=== PATIENT | female | born 1990 | race Caucasian/White ===

== ENCOUNTER → 2016-04-12 | Outpatient (CLI) | payer BC | LOC: LAB.O 16:24 | PROVIDERS: ATTEND Nurse Practitioner Family | DX: R10.13 Epigastric pain (principal); R13.10 Dysphagia, unspecified ==

== ENCOUNTER 2016-07-25 02:49 | Emergency (ER) | payer BC ==
[2016-07-25 03:08] VITALS: TEMP 97.4; O2SAT 98
--- NOTE | 2016-07-25 03:12 | ED.PDOC ---
History of Present Illness - General Chief Complaint: General Stated Complaint: lower right chest and back pain Time Seen by Provider: 07/25/16 03:09 Source: patient, RN notes reviewed, Vital Signs reviewed Exam Limitations: no limitations - History of Present Illness Initial Comments: Patient is a 26 y/o female who has had right chest/back pain since 2300 tonight. It keeps waking her up. She can't describe the pain. It is about a 7 /10 when it hurts around to the back, but is a 4/10 right now. She denies any nausea/vomiting/diarrhea. She believes she has a UTI because she has some mild dysuria. It also feels like her kidneys hurt. Timing/Duration: 4-6 hours Severity: mild, moderate Improving Factors: nothing Worsening Factors: nothing Associated Symptoms: chest pain Allergies/Adverse Reactions: Allergies NO KNOWN ALLERGY Allergy (Verified 07/25/16 03:01) Home Medications: Ambulatory Orders Pantoprazole Sodium [Protonix] 20 mg PO DAILY 07/25/16 Sulfa/Trimeth 800/160 (Ds) Tab [Bactrim DS Tab] 1 ea PO BID #10 tab 07/25/16 Review of Systems - Review of Systems Constitutional: States: no symptoms reported EENTM: States: no symptoms reported Respiratory: States: no symptoms reported Cardiology: States: chest pain Gastrointestinal/Abdominal: States: abdominal pain Genitourinary: States: dysuria, pain Musculoskeletal: States: no symptoms reported Skin: States: no symptoms reported Neurological: States: no symptoms reported Endocrine: States: no symptoms reported Hematologic/Lymphatic: States: no symptoms reported All other Systems: Reviewed and Negative Past Medical History (General) - Patient Medical History Hx Seizures: No Hx Stroke: No Hx Asthma: No Hx of COPD: No Hx Cardiac Disorders: No Hx Congestive Heart Failure: No Hx Pacemaker: No Hx Hypertension: No Hx Diabetes: No Hx Gastroesophageal Reflux: Yes Hx Cancer: No Hx Hepatitis C: No - Vaccination History Hx Tetanus, Diphtheria Vaccination: Yes Hx Influenza Vaccination: No Hx Pneumococcal Vaccination: No Immunizations Up to Date: No - Social History Hx Tobacco Use: No Hx Chewing Tobacco Use: No Hx Alcohol Use: Yes Hx Substance Use: No Hx Substance Use Treatment: No Hx Depression: No Hx Physical Abuse: No Hx Emotional Abuse: No Hx Suspected Abuse: No - Female History Patient is a Female of Child Bearing Age (10 -59 yrs old): Yes Hx Last Menstrual Period: 01/09/16 Patient : - unknown Family Medical History - Family History Mother Family History: No Known Living Status: Still Living Hx Family Asthma: No Hx Family Congestive Heart Failure: No Hx Family Hypertension: No Physical Exam - Physical Exam General Appearance: Alert, Comfortable, No apparent distress Eye Exam: bilateral normal Ears, Nose, Throat: hearing grossly normal, normal ENT inspection Neck: non-tender, supple Respiratory: lungs clear, normal breath sounds, no respiratory distress Cardiovascular/Chest: regular rate, rhythm, no edema, no gallop, no murmur Gastrointestinal/Abdominal: normal bowel sounds, non tender, soft, no organomegaly, no pulsatile mass Back Exam: CVA tenderness (L) Extremity: normal range of motion, non-tender, normal inspection, no pedal edema , no calf tenderness Neurologic: alert, normal mood/affect, oriented x 3 Skin Exam: normal color, warm/dry Progress - Results/Orders Results/Orders: 07/25/16 07/25/16 03:04 04:33 Temperature 97.4 F L Pulse Rate [ 76 68 monitor] Respiratory 20 20 Rate Blood Pressure 134/79 132/69 [Left Arm] O2 Sat by Pulse 98 98 Oximetry 07/25/16 03:00 URINE CULTURE W/COLONY COUNT Stat 07/25/16 03:15 EKG STAT Laboratory Results WBC 7.9 K/mm3 (4.8-10.8) 07/25/16 03:20 RBC 4.85 M/mm3 (4.20-5.40) 07/25/16 03:20 Hgb 13.9 gm/dL (12.0-16.0) 07/25/16 03:20 Hct 42.4 % (36.0-47.0) 07/25/16 03:20 MCV 87.3 fl (81.0-99.0) 07/25/16 03:20 MCH 28.7 pg (27.0-31.0) 07/25/16 03:20 MCHC 32.9 g/dL (33.0-37.0) L 07/25/16 03:20 RDW 14.4 % (11.5-14.5) 07/25/16 03:20 Plt Count 244 K/mm3 (130-400) 07/25/16 03:20 MPV 8.1 fl (7.40-10.4) 07/25/16 03:20 Absolute Neuts (auto) 3.80 K/uL (1.8-6.8) 07/25/16 03:20 Absolute Lymphs (auto) 3.10 K/uL (1.0-3.4) 07/25/16 03:20 Absolute Monos (auto) 0.80 K/uL (0.2-0.8) 07/25/16 03:20 Absolute Eos (auto) 0.00 K/uL (0.0-0.4) 07/25/16 03:20 Absolute Basos (auto) 0.00 K/uL (0.0-0.1) 07/25/16 03:20 Neutrophils % 48.5 % (42.0-78.0) 07/25/16 03:20 Lymphocytes % 39.9 % (20.0-50.0) 07/25/16 03:20 Monocytes % 10.8 % (2.0-9.0) H 07/25/16 03:20 Eosinophils % 0.4 % (1.0-5.0) L 07/25/16 03:20 Basophils % 0.4 % (0.0-2.0) 07/25/16 03:20 D-Dimer, Quantitative 574 ng/mL (0-230) H* 07/25/16 03:20 Sodium 137 mmol/L (135-145) 07/25/16 03:20 Potassium 3.5 mmol/L (3.6-5.0) L 07/25/16 03:20 Chloride 106 mmol/L (101-111) 07/25/16 03:20 Carbon Dioxide 27 mmol/L (21-31) 07/25/16 03:20 Anion Gap 7.5 (12-18) L 07/25/16 03:20 BUN 14 mg/dL (7-18) 07/25/16 03:20 Creatinine 0.66 mg/dL (0.6-1.3) 07/25/16 03:20 BUN/Creatinine Ratio 21.2 (10-20) H 07/25/16 03:20 Random Glucose 91 mg/dL (70-105) 07/25/16 03:20 Serum Osmolality 273.9 mOsm/L (275-295) L 07/25/16 03:20 Calcium 8.5 mg/dL (8.4-10.2) 07/25/16 03:20 Total Bilirubin 0.4 mg/dL (0.2-1.0) 07/25/16 03:20 AST 16 IU/L (10-42) 07/25/16 03:20 ALT 14 IU/L (10-60) 07/25/16 03:20 Alkaline Phosphatase 44 IU/L (42-121) 07/25/16 03:20 Serum Total Protein 7.1 gm/dL (6.4-8.2) 07/25/16 03:20 Albumin 3.9 g/dl (3.2-5.5) 07/25/16 03:20 Globulin 3.2 gm/dL (2.3-3.5) 07/25/16 03:20 Albumin/Globulin Ratio 1.2 (1.1-1.9) 07/25/16 03:20 Serum HCG, Qual Negative 07/25/16 03:20 Urine Color Yellow (Yellow) 07/25/16 03:00 Urine Appearance Cloudy (Clear) 07/25/16 03:00 Urine pH 7.0 (4.5-7.8) 07/25/16 03:00 Ur Specific [place] 1.025 (1.005-1.030) 07/25/16 03:00 Urine Protein >=300 mg/dL H 07/25/16 03:00 Urine Glucose (UA) Negative mg/dL (Negative) 07/25/16 03:00 Urine Ketones Negative mg/dL (NEGATIVE) 07/25/16 03:00 Urine Blood Large (Negative) H 07/25/16 03:00 Urine Nitrite Negative 07/25/16 03:00 Urine Bilirubin Negative (NEGATIVE) 07/25/16 03:00 Urine Urobilinogen 0.2 mg/dL (0.2-1.0) 07/25/16 03:00 Ur Leukocyte Esterase Small (Negative) H 07/25/16 03:00 Urine RBC 10-20 /hpf H 07/25/16 03:00 Urine WBC >100 /hpf H 07/25/16 03:00 Ur Epithelial Cells 3-5 /hpf 07/25/16 03:00 Urine Bacteria 2+ H 07/25/16 03:00 Urine Mucus Small 07/25/16 03:00 - EKG/XRAY/CT EKG: Sinus - 74 bpm, no ST T wave changes Comments: NML axis, NML intervals, No comparison: NML EKG CT: CTA chest: No evidence of PE CT Ordered: Yes Departure - Departure Clinical Impression: Reflux gastritis Urinary tract infection Qualifiers: Urinary tract infection type: site unspecified Hematuria presence: with hematuria Qualified Code(s): N39.0 - Urinary tract infection, site not specified Time of Disposition: 05:49 Disposition: Discharge to Home or Self Care Condition: Fair Departure Forms: ED Discharge - Pt. Copy, Patient Portal Self Enrollment Instructions: Urinary Tract Infection, DI for Urinary Tract Infection (UTI), DI for Gastroesophageal Reflux Disease (GERD), GERD Diet Diet: bland diet Referrals: JONAS ARANDA [Primary Care Provider] - 1-2 Weeks Prescriptions: Sulfa/Trimeth 800/160 (Ds) Tab [Bactrim DS Tab] 1 ea PO BID #10 tab Home Medications: Ambulatory Orders Pantoprazole Sodium [Protonix] 20 mg PO DAILY 07/25/16 Sulfa/Trimeth 800/160 (Ds) Tab [Bactrim DS Tab] 1 ea PO BID #10 tab 07/25/16 Additional Instructions: Increase pantoprazole to twice daily for two days. Follow up with PCP to repeat urinalysis after antibiotics are finished to assure resolution. Follow up in ED if symptoms worsen.
--- NOTE | 2016-07-25 05:24 | CT ---
EXAM DESCRIPTION: CTA Chest 07/25/2016 5:22 AM CDT CLINICAL HISTORY: 26 years, Female, right chest pain/elevated d-dimer COMPARISON: None. TECHNIQUE: Following the timed administration of intravenous contrast, volumetric CT acquisition was performed through the chest. Images in the axial, coronal, and sagittal plane were presented for interpretation. Maximum intensity projections were also presented for interpretation. This exam was performed according to our departmental dose-optimization program, which includes automated exposure control, adjustment of the mA and/or kV according to patient size and/or use of iterative reconstruction technique. FINDINGS: There is no evidence of pulmonary embolism on this diagnostic quality study. The lungs are clear without focal consolidation or pleural effusion. The heart is normal in size and morphology. The thoracic aorta and its primary branches are normal in course and caliber. The main pulmonary artery is normal in size. The visualized proximal tracheobronchial tree is within normal limits. There are no pathologically enlarged mediastinal, hilar, or supraclavicular lymph nodes. The soft tissue structures of the chest wall are normal. The visualized osseous structures are age appropriate. Limited evaluation of the upper abdomen demonstrates no gross abnormalities. The visualized portions of the liver, pancreas, and stomach are normal. The spleen is mildly enlarged measuring 14 cm in greatest transverse dimension. IMPRESSION: 1. No evidence of pulmonary embolism. 2. No acute intrathoracic process. 3. Borderline splenomegaly. Electronically signed by: Chandu Ivy MD 07/25/2016 5:24 AM CDT
[2016-07-25] MEDS ORDERED: SULFA/TRIMETH 800/160 (DS) TAB 1 EA TAB PO ONE (05:46)
[2016-07-25 06:01] VITALS: BP 134/88
== END 2016-07-25 06:02 | disposition home or self-care (01) ==
LOC: ER 02:49
DX: K29.60 Other gastritis without bleeding (principal); N39.0 Urinary tract infection, site not specified; K21.9 Gastro-esophageal reflux disease without esophagitis

== ENCOUNTER 2016-07-25 09:53 | Emergency (ER) | payer BC ==
[2016-07-25 10:18] VITALS: TEMP 98.1
[2016-07-25] MEDS ORDERED: predniSONE 20 MG TAB PO ONE (10:22)
[2016-07-25] MEDS ORDERED: MONTELUKAST SODIUM 10 MG TAB PO ONE (10:23)
--- NOTE | 2016-07-25 11:57 | ED.PDOC ---
History of Present Illness - General Chief Complaint: General Stated Complaint: swelling of hands and feet Time Seen by Provider: 07/25/16 10:13 Source: patient Exam Limitations: no limitations - History of Present Illness Initial Comments: the patient is a 26-year-old female presenting to the emergency room secondary to very mild swelling of all 4 extremities. The patient was here in the emergency room last night for some lower abdominal cramping and some mild back discomfort primarily on the right side. The patient did have an elevated d -dimer and did receive a CT angiogram of the chest which was negative. The swelling started last night before she received any IV contrast or any medications at all. She started with some very mild swelling to the left hand. She has since had some swelling to all 4 extremities. She reports that she has had a couple of hives breakout. They are itchy. She has had some erythema. No shortness of breath. No cough. No syncope or near syncope. No palpitations. She is quite certain that this did start before she received the contrast or antibiotic last night. She was found to have a significant urinary tract infection and was started on Bactrim. Timing/Duration: unsure Severity: mild Improving Factors: nothing Worsening Factors: nothing Associated Symptoms: malaise Allergies/Adverse Reactions: Allergies NO KNOWN ALLERGY Allergy (Verified 07/25/16 03:01) Home Medications: Ambulatory Orders Pantoprazole Sodium [Protonix] 20 mg PO DAILY 07/25/16 Sulfa/Trimeth 800/160 (Ds) Tab [Bactrim DS Tab] 1 ea PO BID #10 tab 07/25/16 Review of Systems - Review of Systems Constitutional: States: no symptoms reported EENTM: States: no symptoms reported Respiratory: States: no symptoms reported Cardiology: States: no symptoms reported Gastrointestinal/Abdominal: States: abdominal pain Genitourinary: States: see HPI Musculoskeletal: States: no symptoms reported Skin: States: see HPI Neurological: States: no symptoms reported Endocrine: States: no symptoms reported All other Systems: No Change from Baseline Past Medical History (General) - Patient Medical History Hx Seizures: No Hx Stroke: No Hx Asthma: No Hx of COPD: No Hx Cardiac Disorders: No Hx Congestive Heart Failure: No Hx Pacemaker: No Hx Hypertension: No Hx Diabetes: No Hx Gastroesophageal Reflux: Yes Hx Cancer: No Hx Hepatitis C: No - Vaccination History Hx Tetanus, Diphtheria Vaccination: Yes Hx Influenza Vaccination: No Hx Pneumococcal Vaccination: No - Social History Hx Tobacco Use: No Hx Chewing Tobacco Use: No Hx Alcohol Use: Yes Hx Substance Use: No Hx Substance Use Treatment: No Hx Depression: No Hx Physical Abuse: No Hx Emotional Abuse: No Hx Suspected Abuse: No - Female History Patient is a Female of Child Bearing Age (10 -59 yrs old): Yes Hx Last Menstrual Period: 01/09/16 Patient : No Family Medical History - Family History Mother Family History: No Known Living Status: Still Living Hx Family Asthma: No Hx Family Congestive Heart Failure: No Hx Family Hypertension: No Physical Exam - Physical Exam General Appearance: Alert, Comfortable, No apparent distress Eye Exam: bilateral normal Ears, Nose, Throat: hearing grossly normal, normal ENT inspection, normal pharynx Neck: non-tender, full range of motion, supple Respiratory: chest non-tender, lungs clear, normal breath sounds, no respiratory distress, no accessory muscle use Cardiovascular/Chest: normal peripheral pulses, regular rate, rhythm, no edema Peripheral Pulses: radial,right: 2+, radial,left: 2+, dorsalis pedis,right: 2+, dorsalis pedis,left: 2+ Gastrointestinal/Abdominal: normal bowel sounds, non tender, soft Rectal Exam: deferred Back Exam: normal inspection, no CVA tenderness, no vertebral tenderness Extremity: normal range of motion, non-tender, no calf tenderness, normal capillary refill, other - trace edema of the hands and feet. Mild erythema of the hands and feet. No swelling of the lips. No swelling in the oropharynx. Neurologic: alert, normal mood/affect, oriented x 3 Skin Exam: rash Comments: Vital Signs - 24 hr 07/25/16 10:17 Temperature 98.1 F Pulse Rate [ 95 H Left Radial] Respiratory 18 Rate Blood Pressure 122/70 [Left Arm] O2 Sat by Pulse 98 Oximetry Progress - Progress Progress: 07/25/16 11:58 the patient is a 26-year-old female presenting with what appears to be a mild allergic reaction to an unknown source. This may be part of her systemic reaction to her urinary tract infection. Tylenol can be used every 6 hours for 24 hours to help reduce that. She is to continue with her antibiotic for urinary tract infection. She did receive 1 dose of oral prednisone here. I would also recommend that she take 1 Zyrtec daily for the next week to help reduce any allergic component. The erythema has reduced. she still does have some trace swelling. No evidence of anaphylaxis. The patient needs to follow up with her primary care doctor on Thursday for a repeat urinalysis to make sure that her urinary tract infection is clearing. She needs to return here to the emergency room for any worsening whatsoever. She needs to keep well-hydrated in order to flush the urinary tract infection out. Urine culture has been performed. Departure - Departure Clinical Impression: Urticaria Disposition: Discharge to Home or Self Care Condition: Fair Departure Forms: ED Discharge - Pt. Copy, Patient Portal Self Enrollment Instructions: DI for Hives Diet: regular diet Activity: increase activity as tolerated Referrals: JONAS ARANDA [Primary Care Provider] - 1-2 Weeks Home Medications: Ambulatory Orders Pantoprazole Sodium [Protonix] 20 mg PO DAILY 07/25/16 Sulfa/Trimeth 800/160 (Ds) Tab [Bactrim DS Tab] 1 ea PO BID #10 tab 07/25/16 Additional Instructions: the patient is a 26-year-old female presenting with what appears to be a mild allergic reaction to an unknown source. This may be part of her systemic reaction to her urinary tract infection. Tylenol can be used every 6 hours for 24 hours to help reduce that. She is to continue with her antibiotic for urinary tract infection. She did receive 1 dose of oral prednisone here. I would also recommend that she take 1 Zyrtec daily for the next week to help reduce any allergic component. The erythema has reduced. she still does have some trace swelling. No evidence of anaphylaxis. The patient needs to follow up with her primary care doctor on Thursday for a repeat urinalysis to make sure that her urinary tract infection is clearing. She needs to return here to the emergency room for any worsening whatsoever. She needs to keep well-hydrated in order to flush the urinary tract infection out. Urine culture has been performed.
[2016-07-25 12:13] VITALS: BP 115/68; O2SAT 97
== END 2016-07-25 12:05 | disposition home or self-care (01) ==
LOC: ER 09:53
DX: L50.9 Urticaria, unspecified (principal); N39.0 Urinary tract infection, site not specified; K21.9 Gastro-esophageal reflux disease without esophagitis

== ENCOUNTER 2016-08-13 09:33 | Emergency (ER) | payer BC ==
[2016-08-13 10:00] VITALS: BP 119/75; TEMP 98.9; O2SAT 96
--- NOTE | 2016-08-13 10:16 | ED.PDOC ---
History of Present Illness - General Time Seen by Provider: 08/13/16 09:57 Source: patient Exam Limitations: no limitations - History of Present Illness Initial Comments: Patient complains of right pelvic pain since having sex last night. She had a Mirena IUD inserted two weeks ago and says this is the first time she has had sex since. She says the pain feels like when the Mirena was first inserted. Pain is constant and stabbing. No vaginal bleeding and no other symptoms. Timing/Duration: 24 hours Severity: mild Improving Factors: nothing Worsening Factors: nothing Associated Symptoms: denies symptoms Allergies/Adverse Reactions: Allergies NO KNOWN ALLERGY Allergy (Verified 07/25/16 03:01) Home Medications: Ambulatory Orders Pantoprazole Sodium [Protonix] 20 mg PO DAILY 07/25/16 Sulfa/Trimeth 800/160 (Ds) Tab [Bactrim DS Tab] 1 ea PO BID #10 tab 07/25/16 Review of Systems - Review of Systems Constitutional: States: no symptoms reported EENTM: States: no symptoms reported Respiratory: States: no symptoms reported Cardiology: States: no symptoms reported Gastrointestinal/Abdominal: States: no symptoms reported Genitourinary: States: see HPI Musculoskeletal: States: no symptoms reported Skin: States: no symptoms reported Neurological: States: no symptoms reported Endocrine: States: no symptoms reported Past Medical History (General) - Patient Medical History Hx Seizures: No Hx Stroke: No Hx Asthma: No Hx of COPD: No Hx Cardiac Disorders: No Hx Congestive Heart Failure: No Hx Pacemaker: No Hx Hypertension: No Hx Diabetes: No Hx Gastroesophageal Reflux: Yes Hx Cancer: No Hx Hepatitis C: No - Vaccination History Hx Tetanus, Diphtheria Vaccination: Yes Hx Influenza Vaccination: Yes - 2016 Hx Pneumococcal Vaccination: No - Social History Hx Tobacco Use: No Hx Chewing Tobacco Use: No Hx Alcohol Use: Yes Hx Substance Use: No Hx Substance Use Treatment: No Hx Depression: No Hx Physical Abuse: No Hx Emotional Abuse: No Hx Suspected Abuse: No - Female History Patient is a Female of Child Bearing Age (10 -59 yrs old): Yes Hx Last Menstrual Period: 01/09/16 Patient : No - Triage Comment ED Triage Comment: Pt reports she had the Mirena placed approx 2 weeks ago Family Medical History - Family History Mother Family History: No Known Living Status: Still Living Hx Family Asthma: No Hx Family Congestive Heart Failure: No Hx Family Hypertension: No Physical Exam - Physical Exam General Appearance: Alert Respiratory: lungs clear Cardiovascular/Chest: regular rate, rhythm Gastrointestinal/Abdominal: normal bowel sounds, non tender, soft Back Exam: no CVA tenderness Skin Exam: normal color Lymphatic: no adenopathy Progress - Progress Progress: 08/13/16 10:16 Called Buster Chaudhary's office since he was the one who inserted the IUD. They agreed to see her today. Patient is going over there now. She voiced understanding and agreement with the plan. Departure - Departure Clinical Impression: Pelvic pain Disposition: Discharge to Home or Self Care Condition: Good Diet: resume usual diet Activity: increase activity as tolerated Referrals: BUSTER CHAUDHARY [Primary Care Provider] - 1-2 Weeks Home Medications: Ambulatory Orders Pantoprazole Sodium [Protonix] 20 mg PO DAILY 07/25/16 Sulfa/Trimeth 800/160 (Ds) Tab [Bactrim DS Tab] 1 ea PO BID #10 tab 07/25/16 Additional Instructions: Go to Buster Chaudhary's office now for evaluation and possible reinsertion of IUD.
== END 2016-08-13 10:30 | disposition home or self-care (01) ==
LOC: ER 09:33
DX: R10.2 Pelvic and perineal pain (principal); K21.9 Gastro-esophageal reflux disease without esophagitis; Z97.5 Presence of (intrauterine) contraceptive device

== ENCOUNTER 2017-01-16 18:07 | Emergency (ER) | payer SELFPAY ==
[2017-01-16] MEDS ORDERED: SODIUM CHLORIDE 0.9% 1000ML 1,000 ML IVS ONE ×2 (19:20→20:49)
[2017-01-16] MEDS ORDERED: ONDANSETRON INJ 4 MG/2 ML VIAL IV ONE (19:20)
--- NOTE | 2017-01-16 21:43 | ED.PDOC ---
History of Present Illness - General Chief Complaint: GI Problem Stated Complaint: HEADACHE, NAUSEA Time Seen by Provider: 01/16/17 19:20 Source: patient, RN notes reviewed, Vital Signs reviewed Exam Limitations: no limitations - History of Present Illness Initial Comments: Recently had 2 + tests @ home. Now having lots of nausea and vomiting. Unable to keep liquids down. Also, have headaches. She is not sure what she can take since she is . She had similar symptoms while she was with her twins. Timing/Duration: intermittent - over past 3-4 days Severity: moderate Improving Factors: nothing Worsening Factors: movement - getting up and moving around Associated Symptoms: headaches, nausea/vomiting Allergies/Adverse Reactions: Allergies NO KNOWN ALLERGY Allergy (Verified 07/25/16 03:01) Home Medications: Ambulatory Orders Pantoprazole Sodium [Protonix] 20 mg PO DAILY 07/25/16 Ondansetron Odt [Zofran ODT] 8 mg PO Q6HR PRN #20 tab 01/16/17 Review of Systems - Review of Systems Constitutional: States: no symptoms reported Respiratory: States: no symptoms reported Cardiology: States: no symptoms reported Gastrointestinal/Abdominal: States: see HPI, nausea, vomiting. Denies: abdominal pain Musculoskeletal: States: no symptoms reported Skin: States: no symptoms reported Neurological: States: headache All other Systems: No Change from Baseline Past Medical History (General) - Patient Medical History Hx Seizures: No Hx Stroke: No Hx Asthma: No Hx of COPD: No Hx Cardiac Disorders: No Hx Congestive Heart Failure: No Hx Pacemaker: No Hx Hypertension: No Hx Diabetes: No Hx Gastroesophageal Reflux: Yes Hx Cancer: No Hx Hepatitis C: No Surgical History: other - Vaccination History Hx Tetanus, Diphtheria Vaccination: Yes Hx Influenza Vaccination: Yes - 2016 Hx Pneumococcal Vaccination: No - Social History Hx Tobacco Use: No Hx Chewing Tobacco Use: No Hx Alcohol Use: Yes Hx Substance Use: No Hx Substance Use Treatment: No Hx Depression: No Hx Physical Abuse: No Hx Emotional Abuse: No Hx Suspected Abuse: No - Female History Hx Last Menstrual Period: 01/09/16 Patient : No Family Medical History - Family History Mother Family History: No Known Living Status: Still Living Hx Family Asthma: No Hx Family Congestive Heart Failure: No Hx Family Hypertension: No Physical Exam - Physical Exam General Appearance: Alert, Comfortable, No apparent distress, Well Developed, Well Groomed, Well Nourished Ears, Nose, Throat: other - Dry mucous membranes Neck: supple, normal inspection Respiratory: lungs clear, normal breath sounds, no respiratory distress, no accessory muscle use Cardiovascular/Chest: regular rate, rhythm, no gallop, no murmur Gastrointestinal/Abdominal: normal bowel sounds, non tender, soft, no organomegaly Extremity: normal inspection Neurologic: alert, normal mood/affect, oriented x 3 Skin Exam: normal color, warm/dry Comments: Vital Signs 01/16/17 01/16/17 18:16 21:04 Temperature 99.2 F Pulse Rate [ 95 H 74 left brachial] Respiratory 16 16 Rate Blood Pressure 132/65 107/67 [left brachial] O2 Sat by Pulse 97 Oximetry Progress - Progress Progress: 01/16/17 21:44 2L NS bolus & Zofran 4mg IV given. Patient is feeling better. - Results/Orders Results/Orders: Laboratory Tests 01/16/17 01/16/17 01/16/17 19:45 19:45 19:45 WBC 7.3 RBC 4.74 Hgb 14.0 Hct 41.7 MCV 88.0 MCH 29.6 MCHC 33.7 RDW 13.5 Plt Count 253 MPV 8.0 Absolute Neuts (auto) 4.30 Absolute Lymphs (auto) 2.20 Absolute Monos (auto) 0.60 Absolute Eos (auto) 0.20 Absolute Basos (auto) 0.00 Neutrophils % 58.4 Lymphocytes % 30.0 Monocytes % 8.7 Eosinophils % 2.5 Basophils % 0.4 Sodium 138 Potassium 3.5 L Chloride 107 Carbon Dioxide 24 Anion Gap 10.5 L BUN 16 Creatinine 0.56 L BUN/Creatinine Ratio 28.6 H Random Glucose 68 L Serum Osmolality 275.2 Calcium 9.2 Total Bilirubin 0.3 AST 15 ALT 14 Alkaline Phosphatase 41 L Serum Total Protein 8.1 Albumin 4.5 Globulin 3.6 H Albumin/Globulin Ratio 1.3 Urine Color Urine Appearance Urine pH Ur Specific [place] Urine Protein Urine Glucose (UA) Urine Ketones Urine Blood Urine Nitrite Urine Bilirubin Urine Urobilinogen Ur Leukocyte Esterase Urine RBC Urine WBC Ur Epithelial Cells Amorphous Sediment Urine Bacteria Urine HCG, Qual Positive 01/16/17 19:45 WBC RBC Hgb Hct MCV MCH MCHC RDW Plt Count MPV Absolute Neuts (auto) Absolute Lymphs (auto) Absolute Monos (auto) Absolute Eos (auto) Absolute Basos (auto) Neutrophils % Lymphocytes % Monocytes % Eosinophils % Basophils % Sodium Potassium Chloride Carbon Dioxide Anion Gap BUN Creatinine BUN/Creatinine Ratio Random Glucose Serum Osmolality Calcium Total Bilirubin AST ALT Alkaline Phosphatase Serum Total Protein Albumin Globulin Albumin/Globulin Ratio Urine Color Yellow Urine Appearance Sl cloudy Urine pH 5.5 Ur Specific [place] >= 1.030 Urine Protein Negative Urine Glucose (UA) Negative Urine Ketones Negative Urine Blood Small H Urine Nitrite Negative Urine Bilirubin Negative Urine Urobilinogen 0.2 Ur Leukocyte Esterase Trace H Urine RBC 10-20 H Urine WBC 5-10 H Ur Epithelial Cells 10-20 Amorphous Sediment Trace Urine Bacteria 3+ H Urine HCG, Qual Departure - Departure Clinical Impression: Vomiting during Time of Disposition: 21:45 Disposition: Discharge to Home or Self Care Condition: Good Departure Forms: ED Discharge - Pt. Copy, Patient Portal Self Enrollment Instructions: DI for Hyperemesis Gravidarum Diet: resume usual diet Activity: increase activity as tolerated Referrals: JONAS ARANDA [Primary Care Provider] - 1-2 Weeks Prescriptions: Ondansetron Odt [Zofran ODT] 8 mg PO Q6HR PRN #20 tab PRN Reason: Nausea/Vomiting Home Medications: Ambulatory Orders Pantoprazole Sodium [Protonix] 20 mg PO DAILY 07/25/16 Ondansetron Odt [Zofran ODT] 8 mg PO Q6HR PRN #20 tab 01/16/17 Additional Instructions: Use Tylenol for headaches
[2017-01-16 22:26] VITALS: BP 106/70; TEMP 99; O2SAT 98
== END 2017-01-16 22:05 | disposition home or self-care (01) ==
LOC: ER 18:07
DX: O21.0 Mild hyperemesis gravidarum (principal); K21.9 Gastro-esophageal reflux disease without esophagitis
CPT/HCPCS: 36415; 80053; 81001; 81025; 85025; J2405; J7030